=== PATIENT | female | born 1945 | race Asian ===

== ENCOUNTER → 2017-04-26 | Outpatient (CLI) | payer OTHER, MEDICAID | LOC: BRMIMAGING 07:58 | PROVIDERS: ATTEND Registered Nurse | DX: Z12.31 Encounter for screening mammogram for malignant neoplasm of breast (principal) | CPT/HCPCS: G0202 ==

== ENCOUNTER → 2017-07-06 | Outpatient (CLI) | payer OTHER, MEDICAID | LOC: BRMIMAGING 08:31 | PROVIDERS: ATTEND Registered Nurse | DX: J40 Bronchitis, not specified as acute or chronic (principal); I70.0 Atherosclerosis of aorta | CPT/HCPCS: 71046-PO ==

== ENCOUNTER → 2018-05-03 | Outpatient (CLI) | payer OTHER, MEDICAID | LOC: BRMIMAGING 11:32 | PROVIDERS: ATTEND Registered Nurse | DX: Z12.31 Encounter for screening mammogram for malignant neoplasm of breast (principal) ==